=== PATIENT | female | born 1965 | race African-American/Black ===

== ENCOUNTER → 2025-07-09 | Day surgery (SDC) | payer BC, OTHER ==
[~2025-07-09] MED LIST: Ropivacaine 0.5% 5 MG/ML 30 ML SDV ONE; methylPREDNISolone Sodium Succinate 125 MG/2 ML SDV IVPUSH SCH
== END ==
LOC: MW.SDS 11:58
PROVIDERS: ATTEND Anesthesiology
DX: M54.16 Radiculopathy, lumbar region (principal); M43.17 Spondylolisthesis, lumbosacral region; Z79.899 Other long term (current) drug therapy
CPT/HCPCS: 62323; J2795